=== PATIENT | female | born 1950 | race Caucasian/White ===

== ENCOUNTER 2018-06-27 13:05 | Emergency (ER) | payer OTHER ==
[2018-06-27] MEDS ORDERED: 0.9 % SODIUM CHLORIDE 1,000 ML IV ONE (13:29)
--- NOTE | 2018-06-27 13:33 | ED Physician Documentation ---
Chest Pain - HISTORIAN Historian: patient - HPI Stated Complaint: chest pain Chief Complaint: Chest Pain Onset: hours (6) Timing: sudden onset Duration: waxing, waning Last known Well Date: 06/26/18 Last Known Well Time: 09:00 Context: activity Severity: moderate Quality: dull, aching Chest Pain Radiation: no radiation Chest Pain Signs/Symptoms: denies: nausea, vomiting, diaphoresis, dizziness, dyspnea Worsened By: exertion Relieved By: rest Further Comments: yes (She states this am she woke to walk her dog and she was feeling "normal.. good" and states after about one mile on her walk she noticed chest pain located on left side of her chest and she states she got home - got dogs up and took a rest and pain resolved and she notes then getting up and around again the pain returned. She notes that she was fine today while [facility] [employer] but getting up and to the car the neel increased again. She did take two baby asprins twice today in case it was a heart issue. she denies any history. she takes not prescription meds daily . No cough , no fever no other complaints) - ROS CONST: none MS/LYMPH: none GI/: none - PAST HX MO risk factors: no pertinent history DVT/PE Risk Factors: none TAD/AAA risk factors: none Neuro deficit: none GI disease: none Lung disease: none Surgeries/Procedures: none Immunizations: UTD Allergies/Adverse Reactions: Allergies Allergy/AdvReac Type Severity Reaction Status Date / Time No Known Allergies Allergy Verified 06/27/18 13:54 Home Medications: Ambulatory Orders Medication Instructions Recorded NK 01/01/15 - SOCIAL HX Smoking History: non-smoker Alcohol Use: none Drug Use: none - FAMILY HX Family HX: none - VITAL SIGNS Vital Signs: Vital Signs Temp Pulse Resp BP Pulse Ox 131/74 03/16/16 11:00 - REVIEWED ASSESSMENTS Nursing Assessment Reviewed: Yes Vitals Reviewed: Yes Progress - Progress Progress: 1445: states pain is a zero while laying in bed. Awaiting lab results. She is aware DG 1530: pain is improved will discharge - she is agreeable DG ED Results Lab/Radiology - Radiology Radiology Impressions: Examination: Portable chest History: Evaluate lungs CHEST PAIN (Hx) Comparison exam: None provided. Findings: Single view of the chest demonstrates a normal cardiac and mediastinal silhouette. Mildly tortuous aorta. Lung pond without focal infiltrate. No blunting of the costophrenic margins. Osseous structures are appropriate for age. Impression: No acute pulmonary process. Electronically signed on Jun 27, 2018 2:08:42 PM AGENCY CASHIER by: Kamlesh Bello - Orders Orders: ED Orders Category Date Time Status Continuous EKG monitoring Q30M Care 06/27/18 13:28 Ordered Continuous Pulse Oximetry Q30M Care 06/27/18 13:[address] IV Lock 1T Care 06/27/18 13:28 Ordered CHEST 1VIEW [RAD] Stat Exams 06/27/18 Ordered CBC/PLATELET/DIFF Routine Lab 06/27/18 13:28 Ordered CMP Routine Lab 06/27/18 13:28 Ordered D DIMER Stat Lab 06/27/18 Ordered TROPONIN I (cTnI) Stat Lab 06/27/18 13:28 Ordered NORMAL SALINE @ 1000 MLS/HR ( 1000ml BOLUS) Med 06/27/18 13:29 Ordered 0.9 % Sodium Chloride [Normal Saline] 1,000 ml IV Q1H Oxygen Daily Oxygen 06/27/18 13:30 Ordered EKG WITH COMPARISON Stat Ther 06/27/18 13:28 Ordered Chest Pain Physical Exam - EXAM General Appearance: no acute distress EENT: eye inspection normal, ENT inspection normal, no signs of dehydration Neck: nml inspection Respiratory: no resp. distress, chest non-tender, nml breath sounds CVS: reg. rate & rhythm Abdomen: soft, no distension Skin: warm/dry Extremities: non-tender, normal range of motion, no evidence of injury, no edema Neuro: oriented X3 Discharge Clincal Impression: Chest pain Qualifiers: Chest pain type: other chest pain Qualified Code(s): R07.89 - Other chest pain Referrals: Gogo Vicente PRN [Primary Care Provider] - 2 Days Comments: 1. Continue current meds 2. Follow up with PCP - call office Wed 3. Return to ER for any concerns REST Condition: Stable Disposition: 01 HOME, SELF-CARE Decision to Admit: NO Date of Decison to Admit: 06/27/18 Decision Time: 15:34
[2018-06-27 13:44] LABS: MEAN CORPUSCULAR HEMOGLOBIN 28.8 pg (28.0-34.0)
[2018-06-27 13:45] LABS: BASOPHILS % 0.3 (0.0-1.5); MONOCYTES % 3.3 % (0.0-11.0); NEUTROPHILS # 9.9 # k/uL (1.4-7.7)
[2018-06-27 13:54] LABS: eGFR (Non-African) > 60
--- NOTE | 2018-06-27 14:46 | Diagnostic Imaging Report ---
JULIANA CRAWFORD [facility] [address] [facility].[address] [address] Report Submission Date: Jun 27, 2018 2:08:42 PM IMMIGRATION CONSULTANT Patient Study Name: HE ISIDRO Date: Jun 27, 2018 1:46:25 PM IMMIGRATION CONSULTANT Modality Type: DX Gender: F Description: CHEST : 54 Institution: [facility] Physician: JULIANA CRAWFORD Examination: Portable chest History: Evaluate lungs CHEST PAIN (Hx) Comparison exam: None provided. Findings: Single view of the chest demonstrates a normal cardiac and mediastinal silhouette. Mildly tortuous aorta. Lung pond without focal infiltrate. No blunting of the costophrenic margins. Osseous structures are appropriate for age. Impression: No acute pulmonary process. Electronically signed on Jun 27, 2018 2:08:42 PM IMMIGRATION CONSULTANT by: Kamlesh LARKIN
[2018-06-27] MEDS ORDERED: KETOROLAC TROMETHAMINE 30 MG/1ML VIAL IVP ONE (15:11)
[2018-06-27 16:08] VITALS: BP 149/62
== END 2018-06-27 16:07 | disposition home or self-care (01) ==
LOC: ED 13:05
DX: R07.89 Other chest pain (principal)
CPT/HCPCS: 36415; 71045; 80053; 84484; 85025; 85379; 93005; 96365; 96375; 99283; 99285; J1885; J7030; S1016

== ENCOUNTER 2018-06-30 16:01 | Outpatient (CLI) | payer OTHER ==
--- NOTE | 2018-06-30 17:30 | Diagnostic Imaging Report ---
SHARON PINTO [facility] [id number] [facility] [address] [place], [place]. 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 CHEST PAIN (Hx) / ITS.REASON CHEST PAIN No similar comparison studies No PE. No pericardial effusion. Calcified right hilar lymph nodes are seen, mild esophageal wall thickening. Several hypodense hepatic lesions are seen, indeterminate. Thoracic spondylosis Pulmonary vascular congestion Bibasilar atelectasis. Impression: No PE. No pericardial effusion. No evidence of aortic aneurysm or dissection No focal lung consolidation, pleural effusion or pneumothorax Mild pulmonary vascular congestion. Esophageal wall thickening is of indeterminate etiology, consider endoscopy evaluation Indeterminate hypodense liver lesions, ? cysts, some are septated, four phase liver protocol CT evaluation suggested. Electronically signed on Jun 30, 2018 5:26:07 PM REPA[employer]ER [employer]URNITURE by: Irma LARKIN
== END 2018-06-30 16:10 ==
LOC: RAD 16:01
PROVIDERS: ATTEND Family Medicine
DX: R07.89 Other chest pain (principal)
CPT/HCPCS: 71275; 84484; Q9967